=== PATIENT | male | born 2000 | race Caucasian/White ===

== ENCOUNTER 2022-03-23 15:54 | Emergency (ER) | payer BC ==
[~2022-03-23] VITALS: Ht 177.8 cm; Wt 82.5 kg
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
[2022-03-23 17:15] LABS: BILIRUBIN,URINE NEGATIVE (NEGATIVE); CLARITY,URINE CLEAR; COLOR,URINE YELLOW; GLUCOSE, URINE (UA) NEGATIVE (NEGATIVE); KETONES,URINE NEGATIVE (NEGATIVE); LEUKOCYTE ESTERASE ,URINE NEGATIVE (NEGATIVE); NITRITE,URINE NEGATIVE (NEGATIVE); PH,URINE 5.5 (5-9); PROTEIN,URINE NEGATIVE (NEGATIVE)
[2022-03-23 17:16] LABS: BASOPHILS # (AUTO) 0.1 10^3/uL (0.0-0.1); BASOPHILS % (AUTO) 1 % (0-10); EOSINOPHILS # (AUTO) 0.3 10^3/uL (0.0-0.3); EOSINOPHILS % (AUTO) 3 % (0-10); HEMATOCRIT 44 % (40-54); HEMOGLOBIN 15.5 g/dL (13.3-17.7); LYMPHOCYTES # (AUTO) 1.5 10^3/uL (1.0-4.0); LYMPHOCYTES % (AUTO) 18 % (12-44); MEAN CORPUSCULAR HEMOGLOBIN 31 pg (25-34); MEAN CORPUSCULAR HGB CONC 35 g/dL (32-36); MEAN CORPUSCULAR VOLUME 89 fL (80-99); MEAN PLATELET VOLUME 9.5 fL (9.0-12.2); MONOCYTES # (AUTO) 0.6 10^3/uL (0.0-1.0); MONOCYTES % (AUTO) 7 % (0-12); NEUTROPHILS # (AUTO) 5.8 10^3/uL (1.8-7.8); NEUTROPHILS % (AUTO) 71 % (42-75); PLATELET COUNT 254 10^3/uL (130-400); WHITE BLOOD COUNT 8.2 10^3/uL (4.3-11.0)
[2022-03-23 17:22] LABS: BACTERIA,URINE NEGATIVE /HPF; SQUAMOUS EPITHELIAL CELL,UR RARE /HPF
[2022-03-23 17:28] LABS: AMPHETAMINE SCREEN, URINE NEGATIVE (NEGATIVE); BARBITURATE SCREEN URINE NEGATIVE (NEGATIVE); BENZODIAZEPINES SCREEN URINE NEGATIVE (NEGATIVE); CANNABINOID SCREEN, URINE NEGATIVE (NEGATIVE); COCAINE SCREEN URINE NEGATIVE (NEGATIVE); METHADONE STAT NEGATIVE (NEGATIVE); OPIATE SCREEN URINE NEGATIVE (NEGATIVE); OXYCODONE STAT NEGATIVE (NEGATIVE); PROPOXYPHENE STAT NEGATIVE (NEGATIVE); TRICYCLIC ANTIDEPRESSANTS SCRE NEGATIVE (NEGATIVE)
[2022-03-23 17:32] LABS: ALBUMIN 4.5 GM/DL (3.2-4.5); CHLORIDE 102 MMOL/L (98-107); POTASSIUM 3.6 MMOL/L (3.6-5.0); SODIUM 140 MMOL/L (135-145)
[2022-03-23 17:33] LABS: CALCIUM 9.5 MG/DL (8.5-10.1)
[2022-03-23 17:34] LABS: GLUCOSE 94 MG/DL (70-105); TOTAL PROTEIN 7.1 GM/DL (6.4-8.2)
[2022-03-23 17:35] LABS: CARBON DIOXIDE 25 MMOL/L (21-32)
[2022-03-23 17:36] LABS: BILIRUBIN,TOTAL 0.8 MG/DL (0.1-1.0)
[2022-03-23 17:38] LABS: ALKALINE PHOSPHATASE 96 U/L (40-136); CREATININE SERUM 0.92 MG/DL (0.60-1.30); GFR ESTIMATED 121
[2022-03-23 17:39] LABS: BUN/CREATININE RATIO 13
[2022-03-23 17:41] LABS: ALANINE AMINOTRANSFERASE 124 U/L (0-55); SALICYLATE < 5.0 MG/DL (5.0-20.0)
[2022-03-23 17:49] LABS: ACETAMINOPHEN < 10 UG/ML (10-30)
[2022-03-23 18:01] LABS: TSH (THYROID ANALYZER) 1.12 UIU/ML (0.35-4.94)
[2022-03-23] MEDS ORDERED: ONDANSETRON 4 MG (ZOFRAN) ORAL DISSOLVE TAB PO STA (18:12)
[2022-03-23] MEDS ORDERED: IBUPROFEN 800 MG (MOTRIN) TAB PO ONE (18:15)
[2022-03-23] MEDS ORDERED: LORazepam 0.5 MG (ATIVAN) TABLET PO STA (18:32)
[2022-03-23 22:14] VITALS: BP 129/88
== END 2022-03-23 22:14 | disposition home or self-care (01) ==
LOC: ER 15:59
DX: F32.A Depression, unspecified (principal); R45.851 Suicidal ideations; Z91.51 Personal history of suicidal behavior; Z79.899 Other long term (current) drug therapy; Z20.822 Contact with and (suspected) exposure to COVID-19
CPT/HCPCS: 80053; 80306; 81000; 84443; 85025; 87636; 99283; G0480 ×3; 36415; 80320; 80329; 93005